=== PATIENT | female | born 1935 | race Caucasian/White ===

== ENCOUNTER → 2018-10-23 | Outpatient (CLI) | payer OTHER | LOC: M.MRI 10:29 | DX: M19.011 Primary osteoarthritis, right shoulder (principal); M47.815 Spondylosis without myelopathy or radiculopathy, thoracolumbar region; M43.16 Spondylolisthesis, lumbar region; M47.816 Spondylosis without myelopathy or radiculopathy, lumbar region; M48.061 Spinal stenosis, lumbar region without neurogenic claudication; M47.818 Spondylosis without myelopathy or radiculopathy, sacral and sacrococcygeal region; M16.0 Bilateral primary osteoarthritis of hip; G89.29 Other chronic pain; M48.062 Spinal stenosis, lumbar region with neurogenic claudication; M54.42 Lumbago with sciatica, left side; M54.41 Lumbago with sciatica, right side; Z96.643 Presence of artificial hip joint, bilateral ==

== ENCOUNTER → 2018-12-04 | Outpatient (CLI) | payer OTHER ==
[~2018-12-04] MED LIST: ARICEPT 5 MG TAB5 MG PO; ATENOLOL 50MG T50 M1 PO; HYDROCHLOROTH12.5 M1 PO; LOVASTATIN 20 M20 MG PO; MOBIC15 MG PO; OMEGA-31000 M1 PO; OXYBUTYNIN 5 MG5 M2 PO; RESTORIL30 MG PO
== END | disposition home or self-care (01) ==
LOC: M.PC 09:30
DX: M19.012 Primary osteoarthritis, left shoulder (principal); M19.011 Primary osteoarthritis, right shoulder; M06.9 Rheumatoid arthritis, unspecified; M51.36 Other intervertebral disc degeneration, lumbar region; M99.73 Connective tissue and disc stenosis of intervertebral foramina of lumbar region; M47.896 Other spondylosis, lumbar region; Z96.643 Presence of artificial hip joint, bilateral; Z98.890 Other specified postprocedural states; Z79.899 Other long term (current) drug therapy

== ENCOUNTER → 2019-01-15 | Outpatient (CLI) | payer OTHER ==
[~2019-01-15] MED LIST changes: +GABAPENTIN 100100 MG PO; +NORCO 7.5-3251 EACH PO
== END ==
LOC: M.PC 01-14 09:37
DX: M51.36 Other intervertebral disc degeneration, lumbar region (principal); M47.816 Spondylosis without myelopathy or radiculopathy, lumbar region; M48.061 Spinal stenosis, lumbar region without neurogenic claudication; Z90.710 Acquired absence of both cervix and uterus; Z90.12 Acquired absence of left breast and nipple

== ENCOUNTER → 2019-01-20 | Outpatient (CLI) | payer OTHER | END | disposition home or self-care (01) | LOC: M.PC 01:43 | DX: M51.16 Intervertebral disc disorders with radiculopathy, lumbar region (principal); M48.061 Spinal stenosis, lumbar region without neurogenic claudication; M47.26 Other spondylosis with radiculopathy, lumbar region; Z85.820 Personal history of malignant melanoma of skin; Z90.710 Acquired absence of both cervix and uterus; Z98.890 Other specified postprocedural states; Z79.899 Other long term (current) drug therapy ==

== ENCOUNTER → 2019-02-03 | Outpatient (CLI) | payer OTHER | END | disposition home or self-care (01) | LOC: M.PC 01:28 | DX: M51.16 Intervertebral disc disorders with radiculopathy, lumbar region (principal); M47.26 Other spondylosis with radiculopathy, lumbar region; M48.061 Spinal stenosis, lumbar region without neurogenic claudication; M99.73 Connective tissue and disc stenosis of intervertebral foramina of lumbar region; M19.019 Primary osteoarthritis, unspecified shoulder; Z98.890 Other specified postprocedural states; Z79.899 Other long term (current) drug therapy ==

== ENCOUNTER → 2019-02-17 | Outpatient (CLI) | payer OTHER | END | disposition home or self-care (01) | LOC: M.PC 01:39 | DX: M53.3 Sacrococcygeal disorders, not elsewhere classified (principal); M54.5 Low back pain; Z85.820 Personal history of malignant melanoma of skin; Z98.890 Other specified postprocedural states; Z90.710 Acquired absence of both cervix and uterus; Z79.899 Other long term (current) drug therapy ==

== ENCOUNTER 2019-04-07 08:33 | Emergency (ER) | payer OTHER ==
[~2019-04-07] VITALS: Ht 160 cm; Wt 54.4 kg
[2019-04-07] MEDS ORDERED: VIBRAMYCIN 100100 M2 PO (08:56)
[2019-04-07] MEDS ORDERED: NORCO 5-325 TA1 EAC1 PO (08:56)
[2019-04-07 09:13] VITALS: BP 147/62
== END 2019-04-07 09:14 | disposition home or self-care (01) ==
LOC: M.ERS 08:33
DX: L02.416 Cutaneous abscess of left lower limb (principal); Z90.710 Acquired absence of both cervix and uterus; Z90.12 Acquired absence of left breast and nipple

== ENCOUNTER → 2019-08-28 | Outpatient (CLI) | payer OTHER ==
[~2019-08-28] MED LIST changes: +NORCO 5-325 TA1 EAC1 PO; +VIBRAMYCIN 100100 M2 PO
== END ==
LOC: M.RAD 12:04
DX: M25.512 Pain in left shoulder (principal); M75.42 Impingement syndrome of left shoulder

== ENCOUNTER 2019-09-23 09:51 | Observation (INO) | payer OTHER ==
[2019-09-16 10:41] LABS: HEMATOCRIT 37.3 % (37.0-47.0); HEMOGLOBIN 12.6 gm/dL (12.0-15.0); MCH 31.4 pg (26.0-34.0); MCHC 33.8 g/dL (28.0-37.0); MCV 92.8 fL (80.0-100.0); MPV 7.8 fl. (7.2-11.1); RBC 4.02 mil/uL (4.20-5.00); RDW-CV 14.9 % (10.5-14.5); WBC 9.6 thou/uL (4.0-11.0)
[2019-09-16 10:49] LABS: URINE BILIRUBIN NEGATIVE (Negative); URINE BLOOD NEGATIVE (Negative); URINE CLARITY CLEAR; URINE COLOR YELLOW; URINE GLUCOSE-RANDOM NEGATIVE (Negative); URINE KETONES NEGATIVE (Negative); URINE LEUKOCYTES-REFLEX TRACE (Negative); URINE NITRITE-REFLEX NEGATIVE (Negative); URINE PROTEIN NEGATIVE (Negative); URINE SPECIFIC GRAVITY 1.025 (1.005-1.030); URINE UROBILINOGEN 0.2 E.U./dl (0.2-1.0)
[2019-09-16 10:50] LABS: PROTIME 10.2 Seconds (9.20-11.50)
[2019-09-16 10:56] LABS: MUCUS 0-3 Light strn/LPF (None Seen); SQUAMOUS 4-10 Moderate /LPF (0-3); URINE RBC 0-2 Rare /HPF (0-2); URINE WBC-REFLEX 6-15 Few /HPF (0-5)
[2019-09-16 10:57] LABS: CASTS None Seen /LPF (None Seen); CRYSTALS None Seen /LPF (None Seen)
[2019-09-16 11:09] LABS: ALBUMIN 2.6 g/dL (3.4-5.0); CALCIUM 8.3 mg/dL (8.5-10.1); CREATININE 1.2 mg/dL (0.6-1.3); POTASSIUM 4.3 mmol/L (3.5-5.1); TOTAL BILIRUBIN 0.3 mg/dL (<0.1-1.0); TOTAL PROTEIN 5.9 g/dL (6.4-8.2)
--- NOTE | 2019-09-16 15:32 | EKG ---
[place] [address] ELECTROCARDIOGRAM REPORT Name: RANDOLPH MEYER Room: [facility]#: [id number] Admission: Attend Phys: Ruddy Rivera, Discharge: Date of : 35 Date of Service: 09/16/191106 Report #: [id number] THIS REPORT FOR: //name// [facility] Test Date: 2019-09-16 Test Time: 11:07:22 Pat Name: RANDOLPH MEYER Department: Room: Gender: Onion Farmer: : 1935 Requested By: Ruddy Rivera Order Number: [id number] Giorgio MD: Neri Vaca Measurements Intervals [place] Rate: 54 P: 53 IA: 139 QRS: 50 QRSD: 89 T: 83 QT: 452 QTc: 429 Interpretive Statements Sinus rhythm Atrial premature complex Borderline T wave abnormalities No previous ECG available for comparison Electronically Signed On 09-16-2019 15:30:38 CDT by Neri Vaca [email or web address] <ELECTRONICALLY SIGNED> By: Neri Vaca MD, [facility] 09/16/19 1530 1107 1107 Neri Vaca MD, FACC /EPI
[~2019-09-23] VITALS: Ht 157.5 cm; Wt 63.5 kg
[~2019-09-23 09:51] MED LIST changes: +LEVOXYL112 MCG PO; +LOVASTAT40 PO
[2019-09-23 18:32] VITALS: BP 145/56
[2019-09-23 20:00] VITALS: BP 111/52
[2019-09-24] VITALS: BP 108/49
[2019-09-24 04:00] VITALS: BP 101/53
[2019-09-24 08:06] VITALS: BP 110/61
--- NOTE | 2019-09-24 11:37 | OP ---
[facility] [address] [place] [address] OPERATIVE REPORT Name: RANDOLPH MEYER Room: [address] Mila#: [id number] Admission: 09/23/19 Attend Phys: Nicholas Carlson Discharge: Date of : 35 Report #: [id number] THIS REPORT FOR: //name// cc: Carlitos Herzog MD, Dean L. MD ~ THIS REPORT FOR: //name// CC: Carlitos Louise PREOPERATIVE DIAGNOSIS: Left shoulder osteoarthritis with rotator cuff chronic tear. POSTOPERATIVE DIAGNOSIS: Left shoulder osteoarthritis with rotator cuff chronic tear. PROCEDURE: Left reverse total shoulder arthroplasty. SURGEON: Ruddy Rivera II, DO UNIX ANALYST: HENRY White ANESTHESIA: Per operative record. ESTIMATED BLOOD LOSS: 100 mL. ANTIBIOTICS: Per operative record. DRAINS: None. COMPLICATIONS: None. CONDITION OF THE PATIENT: Stable to recovery room. IMPLANTS: Listed in operative record and progress note. DESCRIPTION OF PROCEDURE: The patient was taken to the operative suite and placed supine on the operating table, given appropriate anesthesia. The patient's affected shoulder was sterilely prepped and draped in modified beach chair position and all bony prominences well padded. Surgery began by an anterior deltopectoral incision. This was carried down to the subcutaneous tissues. The deltoid was then retracted laterally with careful avoidance of the cephalic vein. There was shown to be extensive osteoarthritis of the humerus with head erosion. The subscapularis was gently reflected off the anterior aspect of the humerus. This was tagged with a suture and retracted. The starting awl was then utilized to ream the humerus, it was reamed up to appropriate size, which was left in place. The cutting alignment guide was then [facility] [address] [place] [address] OPERATIVE REPORT Name: RADNOLPH MEYER Room: [address] Mila#: [id number] Admission: 09/23/19 Attend Phys: Nicholas Carlson Discharge: Date of : 35 Report #: [id number] applied over the intramedullary moid and cut in appropriate fashion, a portion of the head was removed. The head protector was placed over this and it was then retracted out of the way and attention was turned to the glenoid. This was removed with excess labrum around the glenoid. The glenoid alignment tool was then applied over the glenoid and appropriate pin was then placed. Reaming was then undertaken down to punctate bleeding. The appropriate glenoid baseplate was then secured into position with the central screw and a superior, inferior screw. Due to the small size of the glenoid, posterior and anterior screws were not able to be placed. The appropriate glenosphere was then malleted in position with eccentricity inferiorly. Attention was then turned back to the humeral head. Broach was then applied and the trials were then utilized to select the appropriate polyethylene. This was reduced in numerous times to get the appropriate space. Once the appropriate size was selected and the patient had full range of motion of the shoulder, the finals were then malleted into position on the back table in a monoblock and then malleted into the humerus. It was then reduced in appropriate fashion, showing excellent stability of the shoulder with full range of motion with forward flexion, abduction as well as internal rotation. Final irrigation was then performed to the shoulder. It was then closed utilizing a #1 Vicryl to reapproximate the subscapularis layers, a #1 Vicryl running stitch to approximate the deltopectoral interval and 2-0 Vicryl with running Monocryl stitch for the skin. Dermabond and sterile dressing applied. PRP gel sprayed to internal aspects of the shoulder. The patient transported to recovery room in stable condition with a sling in place. Counts were correct throughout the procedure. <ELECTRONICALLY SIGNED> By: Ruddy Rivera II, DO 09/24/19 1137 2230 2300Ruddy Rivera II, DO /nt
[2019-09-24 11:53] VITALS: BP 110/61
[2019-09-24 12:00] VITALS: BP 111/43
[2019-09-24] MEDS ORDERED: PERCOCET 5-3251 EACH PO (12:03)
[2019-09-24] MEDS ORDERED: XARELTO10 M1 PO (12:04)
[2019-09-24 12:12] VITALS: BP 110/61
== END 2019-09-24 12:46 | disposition home health service (06) ==
LOC: M.TBA 09:51 → M.PRE 10:42 → M.3W 18:07 → M.PRE 09-30 06:43
PROVIDERS: Orthopaedic Surgery; ADMIT Internal Medicine
DX: M19.012 Primary osteoarthritis, left shoulder (principal)

== ENCOUNTER 2019-11-21 19:28 | Inpatient (IN) | payer OTHER ==
[~2019-11-21] VITALS: Ht 157.5 cm; Wt 62.1 kg
--- NOTE | ~2019-11-21 | CON ---
[address] [address] CONSULTATION Name: RANDOLPH MEYER Mell Room: [address] IN M.R.#: [id number] Admission: 11/21/19 Attend Phys: Hernan Paez MD Discharge: Date of : 35 Report #: [id number] THIS REPORT FOR: //name// cc: Carlitos Herzog MD, Dean L. MD ~ THIS REPORT FOR: //name// CC: Carlitos Paez DATE OF SERVICE: 11/21/2019 HISTORY OF PRESENT ILLNESS: This 84-year-old female patient was seen in the Emergency Room yesterday. This patient had presented with weakness, predominantly in the right hand and some speech difficulty. Speech difficulty had become better and subsequently the patient's weakness also improved. The patient did not have this kind of symptoms before. She does have what looks like significant memory deficits. From all indication, it looks like she had an underlying dementia. REVIEW OF SYSTEMS: Indicates that she had some cancer and had surgery that was long time ago. She did not have any radiation. She had a mastectomy, melanoma, breast implant, knee surgery, hip replacement. She also has a history of Alzheimer's disease. She has a pilonidal cyst. She had hysterectomy. That was a relevant 14-point review of system. PAST MEDICAL HISTORY: Negative for any stroke. FAMILY HISTORY: Negative for early age strokes. SOCIAL HISTORY: She does not smoke or drink any alcohol. PHYSICAL EXAMINATION: Indicate that she is alert. She is responsive. She can follow simple commands. Her memory and fund of knowledge is poor, but that is her baseline. Cranial nerve examination is difficult to tell because of prior surgeries. I could not tell much about the visual field in this patient. Her weakness of the right hand has resolved, but she appeared to be come to the baseline. There was not much weakness in the lower extremities. Her naqyrl-zh-ezwy and riaq-by-uiqs was good. Blood pressure is 152/76, respirations 13, pulse is 61. LABORATORY DATA: ____ 13.4, ____ is 3.3. Course during the Emergency Room was that the patient had this episode, but then she came back to the baseline. There was initial concern that she is on Xarelto. Dr. Martinez, the Emergency Room physician, called [place] [address] CONSULTATION Name: RANDOLPH MEYER Mell Room: 006-P [facility]#: [id number] Admission: 11/21/19 Attend Phys: Hernan Paez MD Discharge: Date of : 35 Report #: [id number] indicated that the patient got Xarelto only for a few days in September and she has not got any Xarelto, that was after hip surgery. Therefore, that was not a contraindication for giving the TPA, but the patient's symptoms completely resolved. Subsequently, I talked to Dr. Martinez again because she called me that the patient's same symptoms are back again. Since the patient's symptoms have completely resolved, the clock started again at that time for the TPA and I asked her to go ahead and give the TPA after discussing indication, potential complication, and alternative with the family and after looking for any exclusion criteria. The patient received TPA. The patient has already had a CT angio and perfusion, but that did not show any blockage intracranially. So I got a call last night from the nurses that the patient has a headache. That was concerning for intracranial bleed. I did a stat CT in this patient. That does not show any bleed, but it did show that the patient did have a stroke. That stroke was not shown on the first CT or CT angiogram. Main thing was to continue TPA protocol in this patient. Dr. Hernandez will follow up this patient from this morning. I spent a total of about 50 minutes taking care of this patient and majority of that time was spent counseling and coordinating the patient's care. Thank you very much for this referral and if you have any questions, please feel free to contact me. By: 1152 1219Raf Simons MD /marcos
[~2019-11-21 19:28] MED LIST changes: +XARELTO10 M1 PO
[2019-11-21 19:33] VITALS: BP 198/84
[2019-11-21 20:00] LABS: ABSOLUTE LYMPHOCYTES 1.6 thou/uL (0.8-5.3); ABSOLUTE MONOCYTES 0.9 thou/uL (0.0-1.2); ABSOLUTE NEUTROPHILS 10.9 thou/uL (1.6-8.1); BASOPHILS 0.3 %; EOSINOPHILS 0.1 %; HEMATOCRIT 40.4 % (37.0-47.0); HEMOGLOBIN 13.5 gm/dL (12.0-15.0); LYMPHOCYTES 11.8 %; MCH 30.7 pg (26.0-34.0); MCHC 33.4 g/dL (28.0-37.0); MCV 92.1 fL (80.0-100.0); MONOCYTES 6.4 %; MPV 8.1 fl. (7.2-11.1); NUCLEATED RBCS 0 /100WBC; PLATELET COUNT* 327 thou/uL (150-400); POLYS 81.4 %; RBC 4.38 mil/uL (4.20-5.00); RDW-CV 14.5 % (10.5-14.5); WBC 13.4 thou/uL (4.0-11.0)
[2019-11-21 20:07] LABS: PROTIME 10.4 Seconds (9.20-11.50)
[2019-11-21 20:14] LABS: CALCIUM 8.3 mg/dL (8.5-10.1); CREATININE 1.1 mg/dL (0.6-1.3); POTASSIUM 3.5 mmol/L (3.5-5.1)
[2019-11-21 20:20] LABS: ALBUMIN 3.1 g/dL (3.4-5.0); MAGNESIUM 2.1 mg/dL (1.8-2.4); TOTAL BILIRUBIN 0.2 mg/dL (<0.1-1.0); TOTAL PROTEIN 6.8 g/dL (6.4-8.2)
[2019-11-21 20:43] LABS: URINE BILIRUBIN NEGATIVE (Negative); URINE BLOOD NEGATIVE (Negative); URINE CLARITY CLEAR; URINE COLOR YELLOW; URINE GLUCOSE-RANDOM NEGATIVE (Negative); URINE KETONES NEGATIVE (Negative); URINE LEUKOCYTES NEGATIVE (Negative); URINE NITRITE NEGATIVE (Negative); URINE PROTEIN NEGATIVE (Negative); URINE SPECIFIC GRAVITY <= 1.005 (1.005-1.030); URINE UROBILINOGEN 0.2 E.U./dl (0.2-1.0)
[2019-11-21 22:05] VITALS: BP 151/63
[2019-11-22] VITALS (53 sets, daily range): BP systolic 106–162; BP diastolic 51–81
[2019-11-22 11:07] LABS: ALBUMIN 2.9 g/dL (3.4-5.0); CALCIUM 8.7 mg/dL (8.5-10.1); CREATININE 1.1 mg/dL (0.6-1.3); POTASSIUM 3.3 mmol/L (3.5-5.1); TOTAL BILIRUBIN 0.5 mg/dL (<0.1-1.0); TOTAL PROTEIN 6.7 g/dL (6.4-8.2)
[2019-11-22] MEDS ORDERED: MELATONIN10 M3 PO (14:45)
[2019-11-22] MEDS ORDERED: VISION VITAMIN1 EAC1 PO (14:46)
[2019-11-22] MEDS ORDERED: NEURONTIN100 MG PO (14:47)
[2019-11-22] MEDS ORDERED: PREVAGEN PO (14:49)
[2019-11-22] MEDS ORDERED: MEMORY PO (14:52)
[2019-11-22] MEDS ORDERED: TEMAZEPAM30 MG PO (14:52)
[2019-11-22] MEDS ORDERED: [UNRECOGNIZED DRUG - REMARK] PO (14:53)
[2019-11-22] MEDS ORDERED: TENORMIN25 MG PO (14:57)
[2019-11-23 01:16] VITALS: BP 147/61
[2019-11-23 03:34] LABS: ABSOLUTE BASOPHILS 0.1 thou/uL (0.0-0.2); ABSOLUTE EOSINOPHILS 0.1 thou/uL (0.0-0.7); ABSOLUTE LYMPHOCYTES 1.7 thou/uL (0.8-5.3); ABSOLUTE MONOCYTES 0.8 thou/uL (0.0-1.2); BASOPHILS 0.6 %; EOSINOPHILS 0.6 %; HEMATOCRIT 40.5 % (37.0-47.0); HEMOGLOBIN 13.6 gm/dL (12.0-15.0); LYMPHOCYTES 13.4 %; MCH 31.2 pg (26.0-34.0); MCHC 33.6 g/dL (28.0-37.0); MCV 92.7 fL (80.0-100.0); MONOCYTES 6.2 %; MPV 8.4 fl. (7.2-11.1); NUCLEATED RBCS 0 /100WBC; PLATELET COUNT* 302 thou/uL (150-400); POLYS 79.2 %; RBC 4.37 mil/uL (4.20-5.00); RDW-CV 14.4 % (10.5-14.5); WBC 12.6 thou/uL (4.0-11.0)
[2019-11-23 03:50] VITALS: BP 134/70
[2019-11-23 03:56] LABS: CALCIUM 8.2 mg/dL (8.5-10.1)
[2019-11-23 04:31] LABS: CHOLESTEROL 267 mg/dL (<200); HDL CHOLESTEROL 61 mg/dL (>40); LDL CHOLESTEROL 177 mg/dL (<100); TC:HDL 4.4 Ratio (Not establshd); TRIGLYCERIDE 149 mg/dL (<150); VLDL 30 mg/dL (<40)
[2019-11-23 04:32] LABS: SERUM ASSESSMENT Clear
[2019-11-23 05:38] LABS: GLYCOHEMOGLOBIN (HGB A1C) 5.4 % (4.8-5.6)
[2019-11-23 09:45] VITALS: BP 129/61
[2019-11-23 18:47] VITALS: BP 110/47
[2019-11-24] MEDS ORDERED: PLAVIX 75 MG TA75 M1 PO (08:40)
[2019-11-24] MEDS ORDERED: ADULT LOW DOSE81 MG PO (08:40)
[2019-11-24 09:12] VITALS: BP 144/59
--- NOTE | 2019-11-24 11:07 | EKG ---
[place] [address] ELECTROCARDIOGRAM REPORT Name: RANDOLPH MEYER Room: [address] ADM IN .R.#: [id number] Admission: 11/21/19 Attend Phys: Hernan Paez, Discharge: Date of : 35 Date of Service: 11/21/191937 Report #: [id number] THIS REPORT FOR: //name// [facility] ED Test Date: 2019-11-21 Test Time: 19:38:50 Pat Name: RANDOLPH MEYER Department: Room: [facility] Gender: F Electrical Intern: DALTON : 1935 Requested By: Clarisa Martinez Order Number: [id number] MD: Kevin Martini Measurements Intervals [place] Rate: 61 P: 38 MO: 139 QRS: 34 QRSD: 86 T: 9 QT: 422 QTc: 425 Interpretive Statements Sinus rhythm Probable LVH with secondary repol abnrm Compared to ECG 09/16/2019 11:07:22 Atrial premature complex(es) no longer present Electronically Signed On 11-24-2019 11:06:51 CDT by Kevin Martini [email or web address] <ELECTRONICALLY SIGNED> By: Kevin Martini MD, [facility] 11/24/19 1106 37 37 Kevin Martini MD, [facility] /EPI
[2019-11-24 12:48] VITALS: BP 144/59
[2019-11-24 12:59] VITALS: BP 144/59
--- NOTE | 2019-11-24 14:06 | 2DMMODE ---
[place] [address] 2 D/M-MODE ECHOCARDIOGRAM Name: BETSYMIRNARANDOLPH Mell Room: [address] [facility] IN .R.#: [id number] Admission: 11/21/19 Attend Phys: Hernan Paez, Discharge: Date of : 35 Date of Service: 11/24/19 1405 Report #: [id number] THIS REPORT FOR: cc: Carlitos Herzog MD, Dean L. MD Blick,Kevin Park MD [facility] ~ APPROVED REPORT Study performed: 11/24/2019 09:50:20 EXAM: Comprehensive 2D, Doppler, and color-flow Echocardiogram Patient Location: In-Patient Room #: 006 Status: routine BSA: 1.51 HR: 59 bpm Rhythm: NSR Other Information Study Quality: Good Indications CVA/TIA Echo Enhancing Agent Indication: Rule out Shunt Agent(s) / Amount(s) Used: Agitated Saline 10 cc 2D Dimensions IVSd: 13.96 (7-11mm) LVOT Diam: 19.46 (18-24mm) LVDd: 36.30 mm PWd: 10.93 (7-11mm) Ascending Ao: 29.98 (22-36mm) LVDs: 19.54 (25-40mm) Aortic Root: 25.90 mm Aortic Valve AoV Peak Tru.: 2.25 m/s AO Peak Gr.: 20.28 mmHg LVOT Max P.17 mmHg AO Mean Gr.: 11.72 mmHg LVOT Mean P.94 mmHg LVOT Max V: 1.02 m/s AO V2 VTI: 48.17 cm LVOT Mean V: 0.64 m/s CELESTINE (VTI): 1.57 cm2 LVOT V1 VTI: 25.40 [place] [address] 2 D/M-MODE ECHOCARDIOGRAM Name: RANDOLPH MEYER Room: [facility] IN .R.#: [id number] Admission: 11/21/19 Attend Phys: Hernan Paez, Discharge: Date of : 35 Date of Service: 11/24/19 1405 Report #: [id number] Mitral Valve E/A Ratio: 0.71 MV Decel. Time: 356.68 ms MV E Max Tru.: 0.72 m/s MV PHT: 103.44 ms MVA (PHT): 2.13 cm2 TDI E/Lateral E': 10.29 E/Medial E': 10.29 Medial E' Tru.: 0.07 m/s Lateral E' Tru.: 0.07 m/s Pulmonary Valve PV Peak Tru.: 1.03 m/s PV Peak Gr.: 4.24 mmHg Tricuspid Valve RAP Estimate: 5.00 mmHg TR Peak Gr.: 21.87 mmHg RVSP: 26.00 mmHg PA Pressure: 26.00 mmHg Left Ventricle The left ventricle is normal size. There is normal LV segmental wall motion. There is normal left ventricular wall thickness. Left ventricular systolic function is normal. The left ventricular ejection fraction is within the normal range. LVEF is 65-70%. Grade I - abnormal relaxation pattern. Right Ventricle The right ventricle is normal size. The right ventricular systolic function is normal. Atria Left atrium is mildly dilated. The interatrial septum is intact with no evidence for an atrial septal defect. The right atrium size is normal. Aortic Valve Aortic valve is calcified. No aortic regurgitation is present. Mild aortic stenosis. Mitral Valve Mitral valve leaflets are moderately thickened. There is no mitral valve regurgitation noted. No evidence of mitral valve stenosis. [place] [address] 2 D/M-MODE ECHOCARDIOGRAM Name: RANDOLPH MEYER Room: [address]#: [id number] Admission: 11/21/19 Attend Phys: Hernan Paez, Discharge: Date of : 35 Date of Service: 11/24/19 1405 Report #: [id number] The tricuspid valve is normal in structure. Trace tricuspid regurgitation. Pulmonic Valve The pulmonary valve is normal in structure. There is no pulmonic valvular regurgitation. Great Vessels The aortic root is normal in size. IVC is normal in size and collapses >50% with inspiration. Pericardium There is no pericardial effusion. <Conclusion> LVEF is 65-70%. Mild aortic stenosis. The interatrial septum is intact with no evidence for an atrial septal defect. <ELECTRONICALLY SIGNED> By: Kevin Martini MD, FACC 11/24/19 1405 1405 1405 Kevin Martini MD, FACC /INF
[2019-11-24 16:04] VITALS: BP 152/59
[2019-11-24 20:00] VITALS: BP 141/49
[2019-11-25 00:14] VITALS: BP 138/57
[2019-11-25 04:27] VITALS: BP 97/69
[2019-11-25 08:30] VITALS: BP 128/50
[2019-11-25 12:43] VITALS: BP 119/49
[2019-11-25 17:02] VITALS: BP 126/49
[2019-11-25 20:00] VITALS: BP 120/62
[2019-11-26] VITALS: BP 136/62
[2019-11-26 04:00] VITALS: BP 137/63
[2019-11-26 08:00] VITALS: BP 127/42
[2019-11-26 11:24] VITALS: BP 144/59
[2019-11-26 11:36] VITALS: BP 144/59
[2019-11-26] MEDS ORDERED: MELOXICAM15 MG PO (12:38)
[2019-11-26 12:42] VITALS: BP 144/59
== END 2019-11-26 13:00 | disposition home health service (06) | DRG 61 ==
LOC: M.ERS 19:28 → M.ICU 21:30 → M.TBA-ER 21:30 → M.2W 22:11 → M.TBA-ER 22:20 → M.ICU 23:36 → M.2W 23:36 → M.TBA-ER 23:40 → M.ICU 11-22 00:14 → M.2W 11-24 20:36
PROVIDERS: Emergency Medicine; Internal Medicine; ADMIT Internal Medicine; ATTEND Internal Medicine
DX: I63.89 Other cerebral infarction (principal); G93.41 Metabolic encephalopathy; G81.91 Hemiplegia, unspecified affecting right dominant side; E03.9 Hypothyroidism, unspecified; G30.9 Alzheimer's disease, unspecified; F02.80 Dementia in other diseases classified elsewhere, unspecified severity, without behavioral disturbance, psychotic disturbance, mood disturbance, and anxiety; M19.012 Primary osteoarthritis, left shoulder; Z96.612 Presence of left artificial shoulder joint; Z96.649 Presence of unspecified artificial hip joint; Z85.820 Personal history of malignant melanoma of skin; Z79.899 Other long term (current) drug therapy; Z98.82 Breast implant status; Z90.710 Acquired absence of both cervix and uterus; Z90.13 Acquired absence of bilateral breasts and nipples; Z03.818 Encounter for observation for suspected exposure to other biological agents ruled out